=== PATIENT | male | born 1975 | race Caucasian/White ===

== ENCOUNTER 2018-06-23 19:16 | Observation (INO) | payer SELFPAY ==
[~2018-06-23] VITALS: Ht 170.2 cm; Wt 61.4 kg
--- NOTE | 2018-06-23 22:47 | ERD ---
ER Documentation Chief Complaint Chief Complaint CP "burning" radiating to back, head, L arm X 2 days HPI This is a 43-year-old male who is complaining of 2-3 days of substernal chest pressure that radiates to the left shoulder and arm and to somewhat the left neck. He gets a little short of breath no diaphoresis. The pain can occur with exertion or rest. He does not know his cholesterol and his father had a heart attack but no other risk factors. He says the pain is getting more frequent so he came to get evaluated. He is a relatively poor historian ROS All systems reviewed and are negative except as per history of present illness. Allergies Allergies: Coded Allergies: No Known Allergy (Unverified , 06/23/18) PMhx/Soc Medical and Surgical Hx: pt denies Medical Hx, pt denies Surgical Hx Hx Alcohol Use: No Hx Substance Use: No Hx Tobacco Use: No Smoking Status: Never smoker FmHx Family History: No coronary disease Physical Exam Vitals Vital Signs Date Temp Pulse Resp B/P (MAP) Pulse Ox O2 O2 Flow FiO2 Time Delivery Rate 06/24/18 89 19 116/75 100 Room Air 00:07 (89) 06/23/18 98.5 92 18 143/84 99 Room Air 22:38 (103) 06/23/18 98.5 84 18 147/68 98 19:44 (94) Physical Exam EKG: Const: Well-developed, well-nourished Head: Atraumatic, normocephalic Eyes: Normal Conjunctiva, PERRLA, EOMI, normal sclera, no nystagmus ENT: Normal External Ears, Nose and Mouth, moist mucus membranes. Neck: Full range of motion. No meningismus, no lymphadenopathy. Resp: Clear to auscultation bilaterally, no wheezing, rhonchi, rales Cardio: Regular rate and rhythm, no murmurs, S1 S2 present Abd: Soft, non tender x 4, non distended. Normal bowel sounds, no guarding or rebound, no pulsitile abdominal masses or bruits Skin: No petechiae or rashes, no ecchymosis , no maculopapular rash Back: No midline or flank tenderness Ext: No cyanosis, or edema, FROM x 4, normal inspection, neurovascularly intact x 4 Neur: Awake and alert, STR 5/5 x 4, sensation intact x 4, no focal findings, cerebellum intact Psych: Normal Mood and Affect Result Diagram: 06/23/18223406/23/182234 Results 24 hrs Laboratory Tests Test 06/23/18 22:35 White Blood Count 8.6 10^3/ul Red Blood Count 5.44 10^6/ul Hemoglobin 14.2 g/dl Hematocrit 43.5 % Mean Corpuscular Volume 80.0 fl Mean Corpuscular Hemoglobin 26.1 pg Mean Corpuscular Hemoglobin Concent 32.6 g/dl Red Cell Distribution Width 13.4 % Platelet Count 372 10^3/UL Mean Platelet Volume 9.1 fl Immature Granulocytes % 0.200 % Neutrophils % 48.1 % Lymphocytes % 44.0 % Monocytes % 6.7 % Eosinophils % 0.4 % Basophils % 0.6 % Nucleated Red Blood Cells % 0.0 /100WBC Immature Granulocytes # 0.020 10^3/ul Neutrophils # 4.1 10^3/ul Lymphocytes # 3.8 10^3/ul Monocytes # 0.6 10^3/ul Eosinophils # 0.0 10^3/ul Basophils # 0.1 10^3/ul Nucleated Red Blood Cells # 0.0 10^3/ul Sodium Level 143 mmol/L Potassium Level 3.6 mmol/L Chloride Level 103 mmol/L Carbon Dioxide Level 29 mmol/L Anion Gap 11 Blood Urea Nitrogen 10 mg/dl Creatinine 0.69 mg/dl Est Glomerular Filtrat Rate mL/min > 60 mL/min Glucose Level 109 mg/dl Calcium Level 9.7 mg/dl Total Bilirubin 0.3 mg/dl Direct Bilirubin 0.00 mg/dl Indirect Bilirubin 0.3 mg/dl Aspartate Amino Transf (AST/SGOT) 35 IU/L Alanine Aminotransferase (ALT/SGPT) 42 IU/L Alkaline Phosphatase 90 IU/L Troponin I < 0.012 ng/ml Total Protein 8.1 g/dl Albumin 4.8 g/dl Globulin 3.30 g/dl Albumin/Globulin Ratio 1.45 Current Medications Medications Dose Sig/Scott Start Time Status Last (Trade) Ordered Route PRN Stop Time Admin Dose Reason Admin Aspirin 325 mg ONCE STAT 06/23/18 DC 06/23/18 (Aspirin) PO 22:48 23:01 06/23/18 22:49 1 inch ONCE STAT 06/23/18 DC 06/23/18 Nitroglycerin TD 22:48 23:01 06/23/18 22:49 (Nitroglyceri n 2% Oint) Procedures/MDM EKG: Rate/Rhythm: Normal Sinus Rhythm,NL intervals QRS, ST, QT: NORMAL ME, QRS, QT] Impression: NORMAL EKG Cardiac Admit MDM: Patient's symptoms are concerning for cardiac cause will require inpatient workup and continuous monitoring. Further w/u for ischemia, arrhythmia, PE or dissection will be deferred to the inpatient team. Departure Diagnosis: Primary Impression: Chest pain Chest pain type: unspecified Qualified Codes: R07.9 - Chest pain, unspecified Condition: Stable HILTON KRUSE DO Jun 23, 2018 22:47
[2018-06-23] MEDS ORDERED: NITROGLYCERIN 2% 1 GM OINT PKT TD STA (22:48)
[2018-06-23] MEDS ORDERED: ASPIRIN 325 MG TAB PO STA (22:48)
[2018-06-24] VITALS (13 sets, daily range): BP systolic 101–114; BP diastolic 55–66; PULSE 60–74; RESP 17–19; Ht 170.2 cm; Wt 61.4 kg
[2018-06-24] MEDS ORDERED: NACL 0.9% 3 ML SYG IV SCH (01:00)
[2018-06-24] MEDS ORDERED: morphine 2 MG INJ IV PRN (01:00)
[2018-06-24] MEDS ORDERED: ACETAMINOPHEN 325 MG TAB PO PRN ×2 (01:00)
[2018-06-24] MEDS ORDERED: BISACODYL (EC) 5 MG TAB PO PRN (01:00)
[2018-06-24] MEDS ORDERED: DOCUSATE SODIUM 100 MG CAP PO PRN (01:00)
[2018-06-24] MEDS ORDERED: NITROGLYCERIN (SL) 0.4 MG TAB SL PRN (01:00)
[2018-06-24] MEDS ORDERED: ONDANSETRON 4 MG INJ IV PRN (01:00)
--- NOTE | 2018-06-24 01:12 | HP ---
Date/Time of Note Date/Time of Note DATE: 06/24/18 TIME: 01:12 Assessment/Plan VTE Prophylaxis SCD applied (from Nsg): Yes Pharmacological prophylaxis: NA/contraindicated Pharm contraindication: low risk/ambulating Lines/Catheters IV Catheter Type (from Nrsg): Saline Lock Assessment/Plan Hospital Course This is a 43-year-old male being admitted to the telemetry floor for observation for: #1 atypical chest pain: Rule out ACS versus musculoskeletal versus other. I do not see any rashes or lesions on the areas that he points to. He describes sensation as burning. There is also some tenderness to touch. At the current time we will trend cardiac enzymes x3, the first that was negative will check an echocardiogram. Toradol 15 mg IV every 6 hours x2 doses. Will check hemoglobin A1c lipid panel, TSH. Consider cardiology if indicated. #2 DVT GI prophylaxis: SCDs, no GI prophylaxis indicated Further treatment strategy will be implemented as per the clinical course Result Diagram: 06/23/18223406/23/182234 Results 24hrs Laboratory Tests Test 06/23/18 22:35 White Blood Count 8.6 Red Blood Count 5.44 Hemoglobin 14.2 Hematocrit 43.5 Mean Corpuscular Volume 80.0 L Mean Corpuscular Hemoglobin 26.1 L Mean Corpuscular Hemoglobin Concent 32.6 Red Cell Distribution Width 13.4 Platelet Count 372 Mean Platelet Volume 9.1 Immature Granulocytes % 0.200 Neutrophils % 48.1 Lymphocytes % 44.0 Monocytes % 6.7 Eosinophils % 0.4 Basophils % 0.6 Nucleated Red Blood Cells % 0.0 Immature Granulocytes # 0.020 Neutrophils # 4.1 Lymphocytes # 3.8 H Monocytes # 0.6 Eosinophils # 0.0 Basophils # 0.1 Nucleated Red Blood Cells # 0.0 Sodium Level 143 Potassium Level 3.6 Chloride Level 103 Carbon Dioxide Level 29 Anion Gap 11 Blood Urea Nitrogen 10 Creatinine 0.69 Est Glomerular Filtrat Rate mL/min > 60 Glucose Level 109 Calcium Level 9.7 Total Bilirubin 0.3 Direct Bilirubin 0.00 Indirect Bilirubin 0.3 Aspartate Amino Transf (AST/SGOT) 35 Alanine Aminotransferase (ALT/SGPT) 42 Alkaline Phosphatase 90 Troponin I < 0.012 Total Protein 8.1 Albumin 4.8 Globulin 3.30 H Albumin/Globulin Ratio 1.45 HPI/ROS Admit Date/Time Admit Date/Time Hx of Present Illness Chief complaint: Substernal chest pressure, to the back, neck This is a 43-year-old male who is complaining of 2-3 days of substernal chest pressure/burning that radiates to the left shoulder and arm and to somewhat the left neck. He gets a little short of breath no diaphoresis. The pain can occur with exertion or rest. He does not know his cholesterol and his father had a heart attack but no other risk factors. He says the pain is getting more frequent so he came to get evaluated. He denies symptoms being associated with eating. Allergies: NKDA Medications: See JUN MARTA Const: As per HPI Eyes : No pain discharge or redness or change in visual acuity ENT: No pain, sore throat, congestion, congestion, dysphagia or discharge Respiratory: No shortness of breath, cough, sputum, wheezing, or pleuritic pain Cardiovascular: As per HPI GI : no change in appetite, abdominal pain, nausea, vomiting, diarrhea, constipation, or change in the color his stool Genitourinary: No dysuria, hematuria, flank pain , discharge or CVA tenderness Musculoskeletal: As per HPI Skin: No rash, bruising or hives Neuro: No headache, dizziness, syncope, seizure, focal weakness Endocrine: No polyuria, polydipsia, temperature intolerance Psych: No hallucination, depression, anxiety or suicidal ideation PMH/Family/Social Past Medical History Medical History: no pertinent history Medications Current Medications Ondansetron HCl (Zofran Inj) 4 mg ER BRIDGE PRN IV NAUSEA/VOMITING; Start 06/24/18 at 01:00; Stop 06/25/18 at 00:59 Acetaminophen (Tylenol Tab) 650 mg ER BRIDGE PRN PO .MILD PAIN 1-3 OR TEMP; Start 06/24/18 at 01:00; Stop 06/25/18 at 00:59 IV Flush (NS 3 ml) 3 ml PER PROTOCOL IV ; Start 06/24/18 at 01:00; Status UNV Aspirin (Aspirin) 81 mg DAILY PO ; Start 06/24/18 at 09:00; Status UNV Nitroglycerin (Nitroglycerin (Sl Tab) 0.4 Mg) 1 tab Q5M PRN SL .CHEST PAIN; Start 06/24/18 at 01:00; Status UNV Acetaminophen (Tylenol Tab) 650 mg Q6H PRN PO .PAIN 1-3 OR TEMP; Start 06/24/18 at 01:00; Status UNV Morphine Sulfate (morphine) 2 mg Q4H PRN IV .PAIN 7-10; Start 06/24/18 at 01:00; Status UNV Docusate Sodium (Colace) 100 mg Q12H PRN PO .CONSTIPATION; Start 06/24/18 at 01:00; Status UNV Bisacodyl (Dulcolax) 5 mg DAILY PRN PO .CONSTIPATION; Start 06/24/18 at 01:00; Status UNV Coded Allergies: No Known Allergy (Unverified , 06/23/18) Past Surgical History Past Surgical Hx: no surgical history Family History Significant Family History: heart disease (Father) Social History Alcohol Use: occasionally Smoking Status: Never smoker Drug Use: none Exam/Review of Systems Vital Signs Vitals Vital Signs Date Temp Pulse Resp B/P (MAP) Pulse Ox O2 O2 Flow FiO2 Time Delivery Rate 06/24/18 89 19 116/75 100 Room Air 00:07 (89) 06/23/18 98.5 22:38 Exam Exam General: Patient is a pleasant male currently sitting in bed in no acute distress HEENT: Atraumatic, normocephalic. The pupils are equal, round and reactive. Extraocular motor are intact Neck: Supple with full range of motion. No rigidity or meningismus Chest: Mild tenderness palpation over the left chest wall Lungs: Clear to auscultation bilaterally no crackles rales or wheezing Heart: Normal S1-S2, Regular rhythm and rate. No murmur, S3, or S4 Abdomen: Soft , nontender, nondistended , bowel sounds are present. No guarding no rebound tenderness , No masses or organomegaly. No costovertebral temporal angle mass Extremities: Normal to inspection, no edema no cyanosis Musculoskeletal: Tenderness palpation over the bilateral upper back. Neurologic: Normal mental status, speech normal, cranial nerves II through XII are intact, motor and sensory are intact, no focal weakness Additional Comments EKG: Rate/Rhythm: Normal Sinus Rhythm,NL intervals QRS, ST, QT: NORMAL NV, QRS, QT] Impression: NORMAL EKGPROCEDURE: One view chest radiograph. CLINICAL INDICATION: Chest pain. TECHNIQUE: An AP view of the chest was obtained. COMPARISON: None. FINDINGS: Mediastinum: Unremarkable. Heart size: Normal. Pulmonary vasculature: No visible engorgement. Lungs: Clear. Costophrenic sulci: Clear. Bony structures: Grossly unremarkable for age. IMPRESSION: 1. Unremarkable single view chest. RPTAT:AAJJ Physician Todd Date Time Electronically viewed and signed by Ronnell Hernandez Physician on 06/24/2018 01:19 GW/ CC: HILTON KRUSE DO [id number] JOSUÉ DIETRICH Jun 24, 2018 01:12
--- NOTE | 2018-06-24 09:06 | PN ---
Date/Time of Note Date/Time of Note DATE: 06/24/18 TIME: 09:06 Assessment/Plan VTE Prophylaxis SCD applied (from Nsg): Yes Pharmacological prophylaxis: NA/contraindicated Pharm contraindication: low risk/ambulating Lines/Catheters IV Catheter Type (from Nrsg): Saline Lock Assessment/Plan Assessment/Plan 1. Atypical chest pain - troponins negative x3 - EKG negative for acute ST changes - Possibly GI in nature and will start PPI and check Hpylori Ag in stool per wifes request given family member had similar symptoms in the past and was + for hpylori - ECHO ordered - A1c and TSH results noted - pain control 2. Hyper TG - discussed findings with patient and . Encouraged lifestyle modification 3. Disposition - Awaiting ECHO results and Hpylori Ag results. If results unremarkable and symptoms improve, will d/c home Result Diagram: 06/24/18 0310 06/24/18 0310 Results 24hrs Laboratory Tests Test 06/23/18 22:35 06/24/18 03:10 White Blood Count 8.6 6.6 # Red Blood Count 5.44 4.75 Hemoglobin 14.2 12.4 L Hematocrit 43.5 38.7 L Mean Corpuscular Volume 80.0 L 81.5 L Mean Corpuscular Hemoglobin 26.1 L 26.1 L Mean Corpuscular Hemoglobin Concent 32.6 32.0 Red Cell Distribution Width 13.4 13.2 Platelet Count 372 327 Mean Platelet Volume 9.1 8.8 Immature Granulocytes % 0.200 0.300 Neutrophils % 48.1 41.3 Lymphocytes % 44.0 49.7 Monocytes % 6.7 7.3 Eosinophils % 0.4 0.9 Basophils % 0.6 0.5 Nucleated Red Blood Cells % 0.0 0.0 Immature Granulocytes # 0.020 0.020 Neutrophils # 4.1 2.7 Lymphocytes # 3.8 H 3.3 H Monocytes # 0.6 0.5 Eosinophils # 0.0 0.1 Basophils # 0.1 0.0 Nucleated Red Blood Cells # 0.0 0.0 Sodium Level 143 142 Potassium Level 3.6 4.5 Chloride Level 103 107 Carbon Dioxide Level 29 29 Anion Gap 11 6 Blood Urea Nitrogen 10 10 Creatinine 0.69 0.74 Est Glomerular Filtrat Rate mL/min > 60 > 60 Glucose Level 109 98 Calcium Level 9.7 9.1 Total Bilirubin 0.3 0.2 Direct Bilirubin 0.00 0.00 Indirect Bilirubin 0.3 0.2 Aspartate Amino Transf (AST/SGOT) 35 26 Alanine Aminotransferase (ALT/SGPT) 42 33 Alkaline Phosphatase 90 77 Troponin I < 0.012 < 0.012 Total Protein 8.1 6.8 # Albumin 4.8 4.0 Globulin 3.30 H 2.80 Albumin/Globulin Ratio 1.45 1.42 Hemoglobin A1c 5.5 Magnesium Level 2.3 Creatine Kinase 75 Creatine Kinase Index 0.8 Creatinine Kinase MB (Mass) 0.60 Triglycerides Level 253 H Cholesterol Level 192 LDL Cholesterol, Calculated 104 HDL Cholesterol 37 Cholesterol/HDL Ratio 5.1 Thyroid Stimulating Hormone (TSH) 2.930 Subjective 24 Hr Interval Summary Free Text/Dictation Patient still with left sided chest "burning" but denies any shortness of breath, nausea, or vomiting. Patients at bedside and was concerned about H pylori and requested testing. Denies any recent travel. No acute overnight events. Exam/Review of Systems Exam Vitals Vital Signs Date Temp Pulse Resp B/P (MAP) Pulse Ox O2 O2 Flow FiO2 Time Delivery Rate 06/24/18 63 08:03 06/24/18 98.6 19 114/64 97 07:47 (81) 06/24/18 Room Air 01:55 Intake and Output 06/23/18 06/23/18 06/24/18 1515:00 23:00 07:00 IntakeIntake Total 150 ml BalanceBalance 150 ml Exam General: Patient is a pleasant male. no acute distress Neck: Supple Chest: Mild tenderness palpation over the left chest wall Lungs: Clear to auscultation bilaterally no crackles rales or wheezing Heart: Normal S1-S2, Regular rhythm and rate. No murmur, S3, or S4 Abdomen: Soft , nontender, nondistended , bowel sounds are present. Extremities: Normal to inspection, no edema no cyanosis Results Results 24hrs Laboratory Tests Test 06/23/18 22:35 06/24/18 03:10 White Blood Count 8.6 6.6 # Red Blood Count 5.44 4.75 Hemoglobin 14.2 12.4 L Hematocrit 43.5 38.7 L Mean Corpuscular Volume 80.0 L 81.5 L Mean Corpuscular Hemoglobin 26.1 L 26.1 L Mean Corpuscular Hemoglobin Concent 32.6 32.0 Red Cell Distribution Width 13.4 13.2 Platelet Count 372 327 Mean Platelet Volume 9.1 8.8 Immature Granulocytes % 0.200 0.300 Neutrophils % 48.1 41.3 Lymphocytes % 44.0 49.7 Monocytes % 6.7 7.3 Eosinophils % 0.4 0.9 Basophils % 0.6 0.5 Nucleated Red Blood Cells % 0.0 0.0 Immature Granulocytes # 0.020 0.020 Neutrophils # 4.1 2.7 Lymphocytes # 3.8 H 3.3 H Monocytes # 0.6 0.5 Eosinophils # 0.0 0.1 Basophils # 0.1 0.0 Nucleated Red Blood Cells # 0.0 0.0 Sodium Level 143 142 Potassium Level 3.6 4.5 Chloride Level 103 107 Carbon Dioxide Level 29 29 Anion Gap 11 6 Blood Urea Nitrogen 10 10 Creatinine 0.69 0.74 Est Glomerular Filtrat Rate mL/min > 60 > 60 Glucose Level 109 98 Calcium Level 9.7 9.1 Total Bilirubin 0.3 0.2 Direct Bilirubin 0.00 0.00 Indirect Bilirubin 0.3 0.2 Aspartate Amino Transf (AST/SGOT) 35 26 Alanine Aminotransferase (ALT/SGPT) 42 33 Alkaline Phosphatase 90 77 Troponin I < 0.012 < 0.012 Total Protein 8.1 6.8 # Albumin 4.8 4.0 Globulin 3.30 H 2.80 Albumin/Globulin Ratio 1.45 1.42 Hemoglobin A1c 5.5 Magnesium Level 2.3 Creatine Kinase 75 Creatine Kinase Index 0.8 Creatinine Kinase MB (Mass) 0.60 Triglycerides Level 253 H Cholesterol Level 192 LDL Cholesterol, Calculated 104 HDL Cholesterol 37 Cholesterol/HDL Ratio 5.1 Thyroid Stimulating Hormone (TSH) 2.930 Medications Medication Current Medications Ondansetron HCl (Zofran Inj) 4 mg ER BRIDGE PRN IV NAUSEA/VOMITING; Start 06/24/18 at 01:00; Stop 06/25/18 at 00:59 Acetaminophen (Tylenol Tab) 650 mg ER BRIDGE PRN PO .MILD PAIN 1-3 OR TEMP; Start 06/24/18 at 01:00; Stop 06/25/18 at 00:59 IV Flush (NS 3 ml) 3 ml PER PROTOCOL IV ; Start 06/24/18 at 01:00 Aspirin (Aspirin) 81 mg DAILY PO ; Start 06/24/18 at 09:00 Nitroglycerin (Nitroglycerin (Sl Tab) 0.4 Mg) 1 tab Q5M PRN SL .CHEST PAIN; Start 06/24/18 at 01:00 Acetaminophen (Tylenol Tab) 650 mg Q6H PRN PO .PAIN 1-3 OR TEMP; Start 06/24/18 at 01:00 Morphine Sulfate (morphine) 2 mg Q4H PRN IV .PAIN 7-10; Start 06/24/18 at 01:00 Docusate Sodium (Colace) 100 mg Q12H PRN PO .CONSTIPATION Last administered on 06/24/18at 02:21; Admin Dose 100 MG; Start 06/24/18 at 01:00 Bisacodyl (Dulcolax) 5 mg DAILY PRN PO .CONSTIPATION; Start 06/24/18 at 01:00 Ketorolac Tromethamine (Toradol) 15 mg Q6H IV ; Start 06/24/18 at 07:30; Stop 06/24/18 at 13:31 BIRDIE ALDANA MD Jun 24, 2018 09:06
[2018-06-24] MEDS: ASPIRIN 81 MG TAB PO SCH (09:19)
[2018-06-24] MEDS: KETOROLAC 15 MG INJ IV SCH ×2 (09:19→12:35)
[2018-06-24] MEDS: PANTOPRAZOLE (EC) 40 MG TAB PO SCH (12:34)
--- NOTE | 2018-06-24 16:10 | RADRPT ---
Echocardiogram Report Patient Name: MEREDITH BURGERPatient ID: [id number] : 1975 (43y 5m)Study Date: 06/24/2018 7:17:52 AM Gender: MAccession #: [id number] Tech: Pratima Espinoza [facility] Location: 60- Ref.Physician: JOSUÉ DIETRICH Height(Cm): BSA: Weight(Kg): Quality: AdequateAccount #: Procedures: Echocardiographic Report: Transthoracic echocardiogram with complete 2D, M-Mode, and doppler examination. Indications: Chest Pain. Measurements: 2D/M Mode Doppler Measurement Value Normal Range Measurement Value Normal Range LVIDd 2D 3.6 [ 4.2 - 5.8 ] cm AV Peak Kelvin 1.0 [ 100.0 - 170.0 ] cm/se c LVIDs 2D 2.3 [ 2.5 - 4.0 ] cm AV Peak PG 4.0 [ 2.0 - 9.0 ] mmHg LVPWd 2D 0.6 [ 0.6 - 1.0 ] cm LVOT Peak Kelvin 0.9 [ 70.0 - 110.0 ] cm/sec IVSd 2D 0.6 [ 0.6 - 1.0 ] cm LVOT Peak PG 3.0 [ 2.0 - 6.0 ] mmHg AoR Diam 2D 2.5 [ 2.6 - 3.4 ] cm MV E Peak Kelvin 0.9 [ 60.0 - 130.0 ] cm/sec EDV 2D 55.2 [ 62.0 - 150.0 ] ml MV A Peak Kelvin 0.4 [ 100.0 - 120.0 ] cm/se c ESV 2D 18.5 [ 21.0 - 61.0 ] ml MV E/A 2.2 [ 0.8 - 1.5 ] ratio EF 2D 66.5 [ 52.0 - 72.0 ] percent MV PHT 57.0 [ 20.0 - 100.0 ] msec LA Dimen 2D 2.5 [ 3.0 - 4.0 ] cm MV Decel Time 195 [ 104 - 258 ] msec MV Decel [place] 5 Lat E` Kelvin 0.2 [ 10.0 - 15.0 ] cm/sec Lateral E/E` 4.9 [ 1.0 - 2.0 ] ratio Med E` Kelvin 0.1 cm/sec MV E/A 2.2 [ 0.8 - 1.5 ] ratio MVA PHT 3.9 [ 2.0 - 4.0 ] cm2 TR Peak Kelvin 1.7 [ 100.0 - 280.0 ] cm/se c TR Peak PG 11.0 mmHg Findings: Left Ventricle: Normal left ventricular systolic function. Normal left ventricular cavity size. Left ventricular wall thickness upper limits of normal. Ejection fraction is visually estimated at 55-60 %. Tissue Doppler/Mitral Doppler indices are within normal limits. Right Ventricle: Normal right ventricular size. Normal right ventricular systolic function. Left Atrium: The left atrium is normal in size. Right Atrium: The right atrium is normal in size. Atrial Septum: Normal atrial septum. Ventricular septum: Normal/intact ventricular septum. Mitral Valve: Normal appearance of the mitral valve. Trace mitral regurgitation. Aortic Valve: No significant aortic stenosis or insufficiency. Aortic cusps appear mildly calcified. Tricuspid Valve: Normal appearance of the tricuspid valve. Unable to obtain RVSP due to minimal presence of tricuspid regurgitation. There is trace tricuspid regurgitation. Pulmonic Valve: Normal pulmonic valve appearance. No evidence of pulmonic regurgitation. Pericardium: Normal pericardium with no significant pericardial effusion. Aorta: Normal aortic root. IVC: Normal size and normal respiratory collapse consistent with normal right atrial pressure. Pulmonary Artery: Normal pulmonary artery size. Conclusions: Normal left ventricular systolic function. Normal left ventricular cavity size. Left ventricular wall thickness upper limits of normal. Ejection fraction is visually estimated at 55-60 %. Tissue Doppler/Mitral Doppler indices are within normal limits. Normal appearance of the mitral valve. Trace mitral regurgitation. Normal appearance of the tricuspid valve. Unable to obtain RVSP due to minimal presence of tricuspid regurgitation. There is trace tricuspid regurgitation. No significant aortic stenosis or insufficiency. Aortic cusps appear mildly calcified. Electronically Signed By: Cosme Porter 2018-06-24 16:09:33 PDT
[2018-06-25] VITALS (12 sets, daily range): BP systolic 109–124; BP diastolic 58–71; PULSE 64–99; RESP 17–19
[2018-06-25] MEDS: PANTOPRAZOLE (EC) 40 MG TAB PO SCH (05:41)
[2018-06-25] MEDS ORDERED: PANTOPRAZOLE (EC) 40 MG TAB PO SCH (06:00)
[2018-06-25] MEDS: ASPIRIN 81 MG TAB PO SCH (08:32)
--- NOTE | 2018-06-25 13:28 | PN ---
Date/Time of Note Date/Time of Note DATE: 06/25/18 TIME: 13:28 Objective Vitals Vital Signs Date Temp Pulse Resp B/P (MAP) Pulse Ox O2 O2 Flow FiO2 Time Delivery Rate 06/25/18 81 12:37 06/25/18 97.9 18 124/67 99 11:41 (86) 06/24/18 Room Air 01:55 Intake and Output 06/24/18 06/24/18 06/25/18 1515:00 23:00 07:00 IntakeIntake Total 800 ml 500 ml BalanceBalance 800 ml 500 ml Results Result Diagram: 06/25/1851506/25/18515 Medications Medications Current Medications IV Flush (NS 3 ml) 3 ml PER PROTOCOL IV ; Start 06/24/18 at 01:00 Aspirin (Aspirin) 81 mg DAILY PO Last administered on 06/25/18at 08:32; Admin Dose 81 MG; Start 06/24/18 at 09:00 Nitroglycerin (Nitroglycerin (Sl Tab) 0.4 Mg) 1 tab Q5M PRN SL .CHEST PAIN; Start 06/24/18 at 01:00 Acetaminophen (Tylenol Tab) 650 mg Q6H PRN PO .PAIN 1-3 OR TEMP; Start 06/24/18 at 01:00 Morphine Sulfate (morphine) 2 mg Q4H PRN IV .PAIN 7-10; Start 06/24/18 at 01:00 Docusate Sodium (Colace) 100 mg Q12H PRN PO .CONSTIPATION Last administered on 06/24/18at 02:21; Admin Dose 100 MG; Start 06/24/18 at 01:00 Bisacodyl (Dulcolax) 5 mg DAILY PRN PO .CONSTIPATION Last administered on 06/25/18at 08:41; Admin Dose 5 MG; Start 06/24/18 at 01:00 Pantoprazole (Protonix Tab) 40 mg DAILY@06 PO Last administered on 06/25/18at 05:41; Admin Dose 40 MG; Start 06/24/18 at 11:00 Sucralfate (Carafate Susp) 1 gm QID PO ; Start 06/25/18 at 17:00 Miscellaneous Medication (Gi Cocktail (2)) 40 ml ONCE ONCE PO ; Start 06/25/18 at 14:30; Stop 06/25/18 at 14:31 VTE Prophylaxis Risk score (from Nsg)>0 risk: 1 SCD applied (from [facility] [place]): Yes Lines/Catheters IV Catheter Type: Perez in Place: No Assessment/Plan Hospital Course Subjective Patient still has mild burning sensation on his left chest and substernal chest and the back Objective Physical exam General: Patient is laying in bed and answers questions appropriately Mentation: Patient is alert and oriented 4, Head: Normocephalic atraumatic Eyes: EOMI, pupils reactive to light Neck: Supple, nontender, midline Respiratory: Clear to auscultation bilaterally Cardiovascular: regular rate, no obvious murmurs Gastrointestinal: non-tender to palpation, bowel sounds heard. Neurological: Moves all extremities spontaneously Skin: No new skin lesions Assessment/Plan 1. Atypical chest pain - troponins negative x3 - EKG negative for acute ST changes - Possibly GI in nature and will start PPI and check Hpylori Ag in stool per wifes request given family member had similar symptoms in the past and was + for hpylori. We will also start Carafate and GI cocktail x1 - ECHO noted - A1c and TSH results noted - pain control -Due to radiation to the back, rule out dissection, CT angio ordered 2. Hyper TG - discussed findings with patient and . Encouraged lifestyle modification 3. Disposition -Follow with CT angiogram, monitor overnight with Carafate and see how patient does, possible DC tomorrow as patient is self-pay and with no other options for follow-up RADHA KNIGHT Jun 25, 2018 13:28
[2018-06-25] MEDS ORDERED: LIDOCAINE/MYLANTA 40 ML BTL PO ONE (14:30)
[2018-06-25] MEDS: SUCRALFATE (100 MG/ML) 10ML CUP PO SCH ×2 (17:26→20:45)
[2018-06-25] MEDS ORDERED: SOD CHLORIDE 0.9% 100 ML ONE (21:06)
[2018-06-26] VITALS (7 sets, daily range): BP systolic 111–123; BP diastolic 62–72; PULSE 62–84; RESP 17–20
[2018-06-26] MEDS ORDERED: SOD CHLORIDE 0.9% 100 ML ONE (00:19)
[2018-06-26] MEDS ORDERED: IOHEXOL 300MG/ML 150 ML BTL ONE (00:19)
[2018-06-26] MEDS: PANTOPRAZOLE (EC) 40 MG TAB PO SCH (05:57)
[2018-06-26] MEDS: ASPIRIN 81 MG TAB PO SCH (09:00)
[2018-06-26] MEDS: SUCRALFATE (100 MG/ML) 10ML CUP PO SCH ×2 (09:00→12:54)
[2018-06-26] MEDS ORDERED: SUCR1TAB56 PO (10:50)
[2018-06-26] MEDS ORDERED: PANT40TA4 PO (10:50)
--- NOTE | 2018-06-26 10:53 | PDOCDIS ---
Discharge Instructions CONDITION [id number] Patient Condition: [id number] Stable FOLLOW UP/APPOINTMENTS Follow-up Plan 1. Please follow-up with your primary care provider as soon as possible. P celestinaase follow-up with known 5 mm lung nodule on the left side that may also be a lymph node. 2. Please follow-up with your primary care provider and arrange outpatient stress test to test for heart ischemia if needed 3. Please follow-up with your primary care provider to establish care and to reassess if any additional medications are needed. RADHA KNIGHT Jun 26, 2018 10:53
--- NOTE | 2018-06-26 10:59 | DS ---
Date/Time of Note Date/Time of Note DATE: 06/26/18 TIME: 10:58 Discharge Summary Admission/Discharge Info Admit Date/Time Jun 24, 2018 at 00:42 Discharge Date/Time Patient Condition: Stable Hospital Course Patient is a [place] male with no significant past medical history who originally presented to [facility] for left chest wall warmth. Patient a lso initially had some dizziness that subsequently spontaneously resolved. Currently patient was ruled out for ACS, troponins were negative x3 echocardiogram was done and did not show any significant acute abnormality that would explain his symptoms CT angiogram was also done due to patient's complaint of pain also radiating to the back. CT angiogram did not show any significant findings except for an incidental small 5 mm nodule that is likely a lymph node and this was conveyed to the patient and patient's family. Patient's issues may be musculoskeletal in nature however it may also be secondary to mild GI issues, patient will be discharged with appropriate GI medication. Patient had no abdominal pain or epigastric pain at this time however with no explanation apparent warmth on left chest wall, patient's family requested medication for his stomach. Patient's H. pylori antigen in stool has not returned at the time of discharge instructions were given to the patient's sister on how to obtain records and stated that this is not the best way to be diagnosed for H. pylori, patient's sister understands that they need to go to a family practice doctor and then get H. pylori testing done properly in the outpatient setting. Patient has a TAYLOR score of 0 and outpatient follow-up is recommended at this time. Patient's new finding of hypertriglyceridemia is likely due to patient's diet wi th high amounts of butter and will modify his diet before being started on a medication for now. Patient's other cholesterol findings were stable with no other past medical history significant for diabetes, or hypertension. Patient will follow up with his primary care provider and feels generally well at this time. Discharge diagnoses Atypical chest pain versus warmth -Questionable GI etiology, stable, ACS ruled out Hypertriglyceridemia, dietary modification suggested Home Meds Active Scripts Sucralfate* (Carafate*) 1 Gm Tab, 1 GM PO Q6 for 10 Days, #40 TAB Prov:RADHA KNIGHT 06/26/18 Pantoprazole* (Pantoprazole*) 40 Mg Tablet., 40 MG PO QAM for 30 Days, #30 Alternative: Omeprazole 20 mg, 1 tab po qam, #30, no refills Prov:RADHA KNIGHT 06/26/18 Follow-up Plan 1. Please follow-up with your primary care provider as soon as possible. Please follow-up with known 5 mm lung nodule on the left side that may also be a lymph node. 2. Please follow-up with your primary care provider and arrange outpatient stress test to test for heart ischemia if needed 3. Please follow-up with your primary care provider to establish care and to reassess if any additional medications are needed. Primary Care Provider Care Physician No Primary Time spent on discharge: > 30 minutes Pending Labs Laboratory Tests Test 06/26/18 05:57 White Blood Count 7.6 10^3/ul (4.8-10.8) Red Blood Count 5.10 10^6/ul (4.70-6.10) Hemoglobin 13.3 g/dl (14.0-18.0) Hematocrit 40.6 % (42.0-52.0) Mean Corpuscular Volume 79.6 fl (82.0-101.0) Mean Corpuscular Hemoglobin 26.1 pg (29.0-33.0) Mean Corpuscular Hemoglobin Concent 32.8 g/dl (32.0-37.0) Red Cell Distribution Width 13.3 % (11.5-14.5) Platelet Count 338 10^3/UL (140-415) Mean Platelet Volume 9.1 fl (7.4-10.4) Immature Granulocytes % 0.300 % (0.001-0.429) Neutrophils % 44.4 % (39.0-77.0) Lymphocytes % 45.2 % (15.0-51.0) Monocytes % 8.4 % (0.0-11.0) Eosinophils % 1.3 % (0.0-7.0) Basophils % 0.4 % (0.0-2.0) Nucleated Red Blood Cells % 0.0 /100WBC (0.0-0.0) Immature Granulocytes # 0.020 10^3/ul (0.0-0.031) Neutrophils # 3.4 10^3/ul (1.6-7.5) Lymphocytes # 3.4 10^3/ul (0.8-2.9) Monocytes # 0.6 10^3/ul (0.3-0.9) Eosinophils # 0.1 10^3/ul (0.0-0.5) Basophils # 0.0 10^3/ul (0.0-0.1) Nucleated Red Blood Cells # 0.0 10^3/ul (0.0-0.0) Sodium Level 141 mmol/L (135-144) Potassium Level 4.4 mmol/L (3.5-5.1) Chloride Level 102 mmol/L (97-110) Carbon Dioxide Level 27 mmol/L (21-31) Anion Gap 12 (5-13) Blood Urea Nitrogen 12 mg/dl (7-20) Creatinine 0.75 mg/dl (0.61-1.24) Est Glomerular Filtrat Rate mL/min > 60 mL/min (>60) Glucose Level 90 mg/dl (70-220) Calcium Level 9.8 mg/dl (8.4-10.2) Magnesium Level 2.2 mg/dl (1.7-2.5) Total Bilirubin 0.2 mg/dl (0.2-1.3) Direct Bilirubin 0.00 mg/dl (0.00-0.20) Indirect Bilirubin 0.2 mg/dl (0-1.1) Aspartate Amino Transf (AST/SGOT) 21 IU/L (15-46) Alanine Aminotransferase (ALT/SGPT) 32 IU/L (13-69) Alkaline Phosphatase 75 IU/L (42-121) Total Protein 6.6 g/dl (6.1-8.1) Albumin 4.0 g/dl (3.3-4.9) Globulin 2.60 g/dl (1.3-3.2) Albumin/Globulin Ratio 1.53 RADHA KNIGHT Jun 26, 2018 10:58
== END 2018-06-26 13:30 | disposition home or self-care (01) ==
LOC: E/R 19:16 → 6WM 06-24 00:42
PROVIDERS: ADMIT Family Medicine; ATTEND Internal Medicine
DX: R07.89 Other chest pain (principal); E78.1 Pure hyperglyceridemia
CPT/HCPCS: 36415; 71045; 71275; 80053; 80061; 82550; 82553; 83036; 83735; 84443; 84484; 85025; 87338; 93005; 93306; 99285; G0378; J1885; J2270; Q9967